=== PATIENT | female | born 1990 | race Caucasian/White ===

== ENCOUNTER 2018-01-11 23:06 | Emergency (ER) | payer BC ==
[2018-01-12 00:03] VITALS: BMI 25.4
[2018-01-12 00:36] LABS: SQUAMOUS EPITHIAL 9 /hpf (0-5); URINE BACTERIA OCC (<OCC); URINE BILIRUBIN NEGATIVE (NEGATIVE); URINE BLOOD NEGATIVE (NEGATIVE); URINE CLARITY CLOUDY (Clear); URINE COLOR YELLOW (YELLOW); URINE GLUCOSE (UA) NEG (Normal); URINE LEUKOCYTE ESTERASE MOD Leu/uL (Negative); URINE PROTEIN NEGATIVE (NEGATIVE); URINE UROBILINOGEN 0.2-1.0 mg/dL (0.2-1.0)
[2018-01-12 05:57] VITALS: BP 116/67; PULSE 89
== END 2018-01-12 01:10 | disposition home or self-care (01) ==
LOC: H.EROB2 23:06
DX: O26.93 Pregnancy related conditions, unspecified, third trimester (principal); R10.2 Pelvic and perineal pain; O26.853 Spotting complicating pregnancy, third trimester; Z3A.32 32 weeks gestation of pregnancy

== ENCOUNTER 2018-01-14 10:34 | Emergency (ER) | payer BC ==
[2018-01-14 15:58] VITALS: BP 116/66; PULSE 91; RESP 18; TEMP 98.3; O2SAT 98
--- NOTE | 2018-01-14 16:46 | OBHP ---
Datetime: 01/14/2018 13:26 IP Adm Impression: , intrauterine IP Admit Plan: Observation/Evaluation; Discharge home Admit Comment, IP Provider: HPI: Abrahan is a 27yo at 32.5 weeks who presents to triage for ev aluation of light vaginal bleeding. It began yesterday evening with a tablespoon amount of bright red blood in her underwear along with a small blood clot. She had some mild low back pain and uterine cr amping overnight with continued light spotting, however this has resolved this morning. Last sexual i ntercourse was 5 days ago. Recent US on 01/09 showed no evidence of a placenta previa per patient repo rt. EDC 03/04/18 based on first trimester dating US. History of 2 previous C-sections, scheduled for r epeat at 39 weeks. ROS: denies dysuria, urinary frequency or urgency. Good movement, no LOF. History G1: , 2012, live female infant G2: Repeat , 2014, live female infant G3: current PMH Denies PSH x2 Social Lives with her partner and 2 children, no tobacco, alcohol or drug use Medications PNV Allergies NKDA OBJECTIVE See exam section : O+, Ab neg, GC/Chlamydia neg, Hep B neg, GTT normal, Rubella immune, HIV/RPR neg Assessment/Plan: 27yo at 32.5 who presents with less than 24 hours of light vaginal bleeding. A sterile speculum exam revealed no active bleeding with no culprit lesion identified in the vagina or cervix. Extended monitoring showed a reactive NST with only occasional contractions. Unclear what the cause of the vaginal bleeding is at this time but the suspicion for a placental abnormality is low. She is stable for discharge with routine follow-up with her OBGYN. Return precautions given, including worsening of her vaginal bleeding, worsening abdominal pain or decreased movement. T he patient was in agreement with the discharge plan and all questions were answered. Socorro Valerio MD OB Fellow The patient was seen with the following agree with the note Abdomen - PN: Normal Lungs - PN: Normal Heart - PN: Normal HEENT - PN: Normal General - PN: Normal IP Fetus A Comments: Reactive NST FHR - Baseline A Provider: 120 Contraction Comments Provider: sporadic Comments, ACOG Physical Exam: SSE: no blood seen in the vaginal vault, external os closed by visual inspection Gestation - Est Wks by US: 32.5 Pool Provider: Negative EGA AdmitDate IP: 32.5 IP Chief Complaint: Vaginal bleeding NICHD Variability Prov Fetus A: Moderate 6-25bpm NICHD Accel Fetus A IP Provider: [id number] NICHD Decel Fetus A IP Provider: None Datetime: 01/12/2018 00:05 Vital Signs Provider: Reviewed; Within Normal Limits FHR Category Provider Fetus A: Category I Dilatation, Provider: 0 Effacement, Provider: 10 Station, Provider: -2
== END 2018-01-14 11:55 | disposition home or self-care (01) ==
LOC: H.EROB2 10:34
DX: O26.853 Spotting complicating pregnancy, third trimester (principal); O26.93 Pregnancy related conditions, unspecified, third trimester; M54.5 Low back pain; R10.2 Pelvic and perineal pain; Z3A.32 32 weeks gestation of pregnancy

== ENCOUNTER 2018-02-25 08:55 | Inpatient (IN) | payer BC, MEDICAID ==
[2018-02-25 08:58] VITALS: BMI 27.3
[2018-02-25] MEDS ORDERED: ceFAZolin 2 GM in Sodium Chloride 0.9% 100 ML IVPB ONE (09:02)
[2018-02-25 09:39] LABS: BASO % 0.2 % (0.0-2.0); EOS # 0.1 K/uL (0.0-0.7); EOS % 0.7 % (0.0-4.0); HEMOGLOBIN 10.6 g/dL (12.0-16.0); LYMPH # 1.5 K/uL (1.0-4.3); LYMPH % 15.5 % (20.0-40.0); MEAN CELL VOLUME 78.9 fl (81.0-99.0); MEAN CORPUSCULAR HEMOGLOBIN 24.6 pg (27.0-31.0); MEAN CORPUSCULAR HGB CONC 31.2 g/dL (33.0-37.0); MONO # 0.6 K/uL (0.0-0.8); MONO % 6.5 % (0.0-10.0); NEUT # 7.3 K/uL (1.8-7.0); NEUT % 77.1 % (50.0-75.0); NRBC % 0.1 % (0.0-0.0); RBC 4.32 Mil/uL (3.80-5.20); RED CELL DISTRIBUTION WIDTH 15.7 % (11.5-14.5); WHITE BLOOD COUNT 9.5 K/uL (4.8-10.8)
[2018-02-25] MEDS: Lactated Ringer's 1,000 ML IV ONE ×2 (09:45→11:45)
[2018-02-25] MEDS ORDERED: OXYTOCIN/0.9 % NS 20 UNIT/1,000 ML BAG IV ONE (09:53)
[2018-02-25] MEDS ORDERED: Oxytocin 30 UNIT 30 UNITS/500 ML BAG IV ONE ×2 (09:53→14:16)
[2018-02-25] MEDS ORDERED: ePHEDrine 50 mg/ml Inj ONE (10:12)
[2018-02-25] MEDS ORDERED: Morphine 1 mg/ml preservative-free Inj(Duramorph) ONE (10:13)
[2018-02-25] MEDS ORDERED: Ketamine 50 mg/ml Inj (10 ml) ONE (12:55)
--- NOTE | 2018-02-25 13:16 | OBADHP ---
Datetime: 02/25/2018 09:30 IP Chief Complaint Other: Scheduled Admit Comment, IP Provider: HPI: Abrahan is a 27 year old at 39.0 weeks here for repeat C-sect ion. ROSELYN of 03/04/18 confirmed by 8 week US. Patient denies any contractions, vaginal bleeding or LOF . Good movement. ROS: as above, otherwise negative History G1: at term, 2012 G2: Repeat at term, 2014 G3: current PMH Denies PSH x2 Medications PNV Allergies NKDA Social History Denies tobacco, alcohol or drug use. Lives with her current partner (and FOB) and her 2 daughters. Family History No significant congenital abnormalities OBJECTIVE See exam section labs: O+, Ab neg, Rubella immune, Hep B neg, HIV/RPR neg, GTT WNL, GBS negative, GC/Chlam ydia negative Assessment/Plan: 27 year old at 39.0 weeks admitted for repeat - Discussed risks/benefits/alternatives to surgery, patient consented - Fetus is vertex by US - Initiate protocol - GBS negative Socorro Valerio MD OB Fellow Patient was seen with the resident I agree with the note Abdomen - PN: Normal Lungs - PN: Normal Heart - PN: Normal HEENT - PN: Normal General - PN: Normal Presentation-Admit: Vertex FHR - Baseline A Provider: 120 Gestation - Est Wks by US: 39.0 Vital Signs Provider: Reviewed; Within Normal Limits NICHD Variability Prov Fetus A: Moderate 6-25bpm NICHD Accel Fetus A IP Provider: [id number] NICHD Decel Fetus A IP Provider: None Dilatation, Provider: NA IP Admit Plan: Initiate Section protocol Datetime: 01/14/2018 13:26 IP Fetus A Comments: Reactive NST Contraction Comments Provider: sporadic Comments, ACOG Physical Exam: SSE: no blood seen in the vaginal vault, external os closed by visual inspection Pool Provider: Negative IP Chief Complaint: Vaginal bleeding EGA AdmitDate IP: 33.0 IP Adm Impression: , intrauterine Datetime: 01/12/2018 00:05 FHR Category Provider Fetus A: Category I Effacement, Provider: 10 Station, Provider: -2
[2018-02-25] MEDS ORDERED: Propofol 10 mg/ml Inj (20 ML) ONE (13:17)
--- NOTE | 2018-02-25 13:32 | OBDS ---
DELIVERY PERSONNEL Delivery Doctor: Elisa Sung MD / MD Teodoro (Fellow) Scrub Nurse: Karen Vázquez OBT Sheriff Officer: Adina Seth RN Anesthesiologist: MD lakesha MATERNAL INFORMATION Delivery Anesthesia: Spinal Medications in Delivery: pitocin Estimated Blood Loss (ml): 800 Placenta Cultured: No Maternal Complications: None RN Comments: Atraumatic Repeat delivery of a viable baby girl with Lusty cry. cared for Dr Parr and assigned 9/9 's. Infant and patient tolerated delivery well. Provider Comments: See operative report LABOR SUMMARY EDC: 03/04/2018 00:00 No. Babies in Womb: 1 Attempted: No Labor Anesthesia: Spinal LABOR INFORMATION Reason for Induction: Not Applicable Group B Beta Strep: Negative Antibiotics # of Doses: 1 Antibiotics Time of Last Dose: 1159 Steroids Given: None Reason Steroids Not Administered: Not Applicable Other Reason Not Administered: Not required MEMBRANES Membranes Rupture Method: Artificial Rupture of Membranes: 02/25/2018 12:39 Length of Rupture (hrs): 0.02 Amniotic Fluid Color: Clear Amniotic Fluid Amount: Moderate Amniotic Fluid Odor: Normal STAGES OF LABOR Stage 3 hrs: 0 Stage 3 min: 1 CSECTION DELIVERY Primary Indication: Repeat Elective CSection Urgency: Elective CSection Incidence: Repeat CSection Incision: Lower Uterine Transverse BABY A INFORMATION Infant Delivery Date/Time: 02/25/2018 12:40 Method of Delivery: Born in Route : No : N/A Forceps: N/A Vacuum Extraction: N/A Shoulder Dystocia : No SHOULDER DYSTOCIA BABY A Infant Delivery Date/Time: 02/25/2018 12:40 PRESENTATION/POSITION BABY A Presentation: Cephalic Cephalic Presentation: Vertex Breech Presentation: N/A PLACENTA INFORMATION BABY A Placenta Delivery Time : 02/25/2018 12:41 Placenta Method of Delivery: Manual Removal Placenta Status: Delivered SCORES BABY A Heart Rate 1 min: >100 bpm Resp Effort 1 min: Good Cry Reflex Irritability 1 min: Cough or Sneeze or Pulls Away Muscle Tone 1 min: Active Motion Color 1 min: Body Scofield, Extremities Blue Resuscitation Effort 1 min: N/A SCORE 1 MIN: 9 Heart Rate 5 min: >100 bpm Resp Effort 5 min: Good Cry Reflex Irritability 5 min: Cough or Sneeze or Pulls Away Muscle Tone 5 min: Active Motion Color 5 min: Body Sc[place]ield, Extremities Blue Resuscitation Effort 5 min: N/A SCORE 5 MIN: 9 INFORMATION BABY A Gestational Age at Delivery: 39.0 Gestational Status: Term Infant Outcome : Liveborn Infant Condition : Stable Sex: Female IDENTIFICATION/MEDS BABY A ID Band Number: [id number] ID Band Location: Right Leg; Right Arm WEIGHT/LENGTH BABY A Infant Birthweight (gms): 4050 Infant Weight (lb): 8 Weight (oz): 15 Length Inches: 22.00 Infant Length cms: 55.9 CORD INFORMATION BABY A No. Cord Vessels: 3 Nuchal Cord : N/A Cord Blood Taken: No Infant Suction: Mouth; Nose ASSESSMENT BABY A Complications: None Physical Findings at Delivery: Within Normal Limits Respirations: Appears Normal Coil Rewind Machine Operator/ALS Called : No Care By: Dr Najera Transferred To: Nursery
[2018-02-25] MEDS ORDERED: Lactated Ringer's 1,000 ML IV ONE (14:16)
[2018-02-25] MEDS ORDERED: OXYTOCIN/0.9 % NS 20 UNIT/1,000 ML BAG IV SCH ×2 (15:45→17:10)
[2018-02-25] MEDS ORDERED: Oxycodone/Acetaminophen 5/325 mg Tab PO PRN (16:17)
[2018-02-26] MEDS: Oxycodone/Acetaminophen 5/325 mg Tab PO PRN ×3 (01:52→15:31)
--- NOTE | 2018-02-26 06:38 | OP ---
PROCEDURE DATE: 02/25/2018 PREOPERATIVE DIAGNOSES: Intrauterine at 39 weeks and history of previous section x2. POSTOPERATIVE DIAGNOSES: Intrauterine at 39 weeks and history of previous section x2. OPERATION PERFORMED: Repeat low-flap transverse section by Pfannenstiel skin incision. SURGEON: Wendi Sung MD GRINDER SET UP OPERATOR JIG: Dr. Socorro Valerio ESTIMATED BLOOD LOSS: 800 mL. URINE OUTPUT: Gandhi catheter put out approximately 350 mL of clear urine. INTRAVENOUS FLUID INTAKE: The patient received approximately 2 L of D5 LR intraoperatively. ANESTHESIA: Spinal. ANESTHESIA ADMINISTERED BY: Agatha Houston MD OPERATIVE FINDINGS: Baby girl, vertex presentation, Apgars 9 and 9, weighing 4050 g. Normal uterus, tubes and ovaries were identified. DESCRIPTION OF PROCEDURE: After informed consent was obtained, the patient was taken to the operating room where she was given spinal anesthesia. She was then prepped and draped in a normal sterile fashion with a leftward tilt. A Pfannenstiel skin incision was then made with a scalpel and carried down to the underlying layer of fascia. The fascia was nicked in the midline. The fascial incision was then extended laterally with a curved Gambino scissors. The superior aspect of the fascial incision was then grasped with Danielle clamps, elevated up, and the rectus muscles were dissected off using both sharp and blunt dissection. Attention was then turned to the inferior aspect of the fascial incision, which in a similar fashion, was grasped with Danielle clamps, elevated up, and the rectus muscles were dissected off using both sharp and blunt dissection. The rectus muscles were then in the midline. The peritoneum was identified and entered sharply with the Metzenbaum scissors. The peritoneal incision was then extended superiorly and inferiorly until good visualization of the bladder. A bladder blade was then inserted. The vesicouterine peritoneum was identified and entered sharply with the Metzenbaum scissors. The incision was then extended laterally. A bladder flap was created digitally. The bladder blade was then re-adjusted. A low-transverse incision was made with the scalpel. The incision was then extended laterally. The infant's head was then delivered atraumatically. The nose and mouth were suctioned with DeLee suction trap. The cord was clamped and cut. The was handed off to awaiting pediatricians. The placenta was then removed manually. The uterus was exteriorized and cleared of all clots and debris. The uterine incision was then repaired with 0 Vicryl in a running fashion. The second layer of the same suture was used to obtain excellent hemostasis. The abdomen was then copiously irrigated. The irrigant was removed with the suction device. The uterus was returned to the abdomen. The incision was noted to be hemostatic. The peritoneum was then closed with a 2-0 Vicryl in a running fashion. The muscles were reapproximated with 0 Vicryl in an interrupted fashion. The fascia was closed with 0 Vicryl in a running fashion. The skin was closed with a 4-0 on a Obed needle. All sponge, lap, needle and instrument counts were correct x2. The patient was taken to the recovery room in awake and stable condition. Wendi Sung MD cc: Dr. Socorro Valerio
[2018-02-26 06:47] LABS: MEAN CELL VOLUME 77.3 fl (81.0-99.0); MEAN CORPUSCULAR HEMOGLOBIN 24.4 pg (27.0-31.0); MEAN CORPUSCULAR HGB CONC 31.5 g/dL (33.0-37.0); RBC 4.1 Mil/uL (3.80-5.20)
[2018-02-26] MEDS: Multivitamin With Minerals Tab PO SCH (08:44)
[2018-02-26] MEDS ORDERED: Multivitamin With Minerals Tab PO SCH (09:00)
[2018-02-27] MEDS: Oxycodone/Acetaminophen 5/325 mg Tab PO PRN ×2 (05:54→22:08)
--- NOTE | 2018-02-27 09:03 | OBPPN ---
Datetime: 02/26/2018 09:02 PP Pain Prov: Within normal limits PP Nausea Prov: Denies PP Flatus Prov: Yes PP Breasts Prov: Normal PP Heart Prov: Normal PP Lungs Prov: Normal PP Abdomen/Uterus Prov: Normal PP Lochia Prov: Normal PP Vulva/Perineum Prov: Normal PP CVA Tenderness Prov: Normal PP Extremities Prov: Normal PP C/S Incision Prov: Normal PP Progress Prov: Normal PP Impression Prov: Normal progression PP Plan Prov: Continue present management PP Progress Note Prov: Postoperative day #1 status post , patient recovering well Postoperative CBC Regular diet Pain control Out of bed and ambulate IP PP Procedures: None Vital Signs Provider PP: Reviewed; Within Normal Limits
[2018-02-27] MEDS: Multivitamin With Minerals Tab PO SCH (10:29)
--- NOTE | 2018-02-27 15:10 | OBPPN ---
Datetime: 02/27/2018 10:06 PP Pain Prov: Within normal limits PP Nausea Prov: Denies PP Flatus Prov: Yes PP Breasts Prov: Normal PP Heart Prov: Normal PP Lungs Prov: Normal PP Abdomen/Uterus Prov: Normal PP Lochia Prov: Normal PP Vulva/Perineum Prov: Normal PP CVA Tenderness Prov: Normal PP Extremities Prov: Normal PP Comments Phys Exam Prov: Incision Clean/dry/intact Fundus firm under umbilicus PP Impression Prov: Normal progression PP Plan Prov: Continue present management PP Progress Note Prov: Patient denies CP, no SOB,no N/V, tolerating PO diet, ambulating/voiding well , mild lochia, abdominal pain tolerable with meds, mild lochia, +flatus A/P POD #2 1. Continue current post-op orders 2. Percocet/Motrin prn pain 3. Encourage ambulation/ IP PP Procedures: None Vital Signs Provider PP: Reviewed; Within Normal Limits
--- NOTE | 2018-02-28 09:48 | OBPPN ---
Datetime: 02/28/2018 09:46 PP Pain Prov: Within normal limits PP Nausea Prov: Denies PP Flatus Prov: Yes PP Breasts Prov: Not Done PP Heart Prov: Normal PP Lungs Prov: Normal PP Abdomen/Uterus Prov: Normal PP Lochia Prov: Not Done PP Vulva/Perineum Prov: Not Done PP CVA Tenderness Prov: Normal PP Extremities Prov: Normal PP Impression Prov: Normal progression PP Plan Prov: Discharge PP Progress Note Prov: Patient doing well ambulating tolerating diet pain well-controlled Vital signs stable afebrile Uterus firm below the umbilicus Incision clean dry and intact Extremities no Homans Post op day #3 Discharge home Follow up in 1 week Vital Signs Provider PP: Reviewed
--- NOTE | 2018-02-28 09:48 | OBDCSUM ---
Datetime: 01/14/2018 11:47 Discharge Instructions, Provider: Routine instructions given Discharge Diagnosis, Provider: Term Delivered Contraception discussed, Prov: Yes Disch Activity Restrictions: Minimize stair-climbing; No sexual activity; Nothing in vagina - Interc ourse, tampons, douche Discharge Comment, Provider: Cleared for discharge Contraception after Delivery: Undecided
[2018-02-28] MEDS: Multivitamin With Minerals Tab PO SCH (09:52)
[2018-02-28] MEDS: Oxycodone/Acetaminophen 5/325 mg Tab PO PRN (10:45)
[2018-02-28 19:16] VITALS: BP 134/62; PULSE 70; RESP 20; TEMP 98.3; O2SAT 99
== END 2018-02-28 14:15 | disposition home or self-care (01) | DRG 788 ==
LOC: H.EROB 09:27 → H.OB/GYN 16:00
PROVIDERS: ADMIT Obstetrics & Gynecology Gynecology; ATTEND Obstetrics & Gynecology Gynecology
PROC: 10D00Z1 Extraction of Products of Conception, Low, Open Approach (ICD-10-PCS; principal; 2018-02-25)
PROC: 4A1HXCZ Monitoring of Products of Conception, Cardiac Rate, External Approach (ICD-10-PCS; 2018-02-25)
DX: O34.211 Maternal care for low transverse scar from previous cesarean delivery (principal); N85.8 Other specified noninflammatory disorders of uterus; Z37.0 Single live birth; Z3A.39 39 weeks gestation of pregnancy